=== PATIENT | male | born 1940 | race Caucasian/White ===

== ENCOUNTER → 2020-04-15 | Day surgery (SDC) | payer MEDICARE, BC ==
[~2020-04-15] MED LIST: Ketamine 200 MG/20 ML MDV ONE; Lactated Ringers 1,000 ML IV SCH; Propofol 200 MG/20 ML SDV ONE; fentaNYL 100 MCG/2 ML SDV ONE
--- NOTE | 2020-04-15 11:13 | OR ---
DATE OF OPERATION: 04/15/2020 PREOPERATIVE DIAGNOSIS: HEME-POSITIVE STOOL. POSTOPERATIVE DIAGNOSIS: HEME-POSITIVE STOOL. SURGEON: Rakesh Sarkar MD PROCEDURE: FULL-LENGTH COLONOSCOPY. ANESTHESIA: MAC. COMPLICATIONS: None. SPECIMEN: None. FINDINGS: 1. Normal full-length colonoscopy. 2. Mild sigmoid diverticulosis. RECOMMENDATIONS: Followup colonoscopy on a p.r.n. basis. INDICATIONS: The patient was in for a routine physical and was found to have heme-positive stool, been many years since his last colonoscopy. We proceeded with a diagnostic scope. DESCRIPTION OF PROCEDURE: The patient was prepped and draped and placed in the left lateral decubitus position. A lubricated Olympus colonoscope was inserted and with ease advanced through the cecum. Direct visualization of the ileocecal valve and appendiceal orifice was accomplished. The bowel prep was excellent. Upon withdrawal of the scope throughout the entire length of the colon, I could find no polyps, masses, ulceration, or bleeding sites and no vascular abnormalities or signs of colitis. The rectal vault was unremarkable. Retroflexion showed no perianal lesions. The patient does have scattered diverticula in the sigmoid area, mild in severity. Air was then suctioned and the scope removed without complication. HARRIS/SHAWNEE /[id number]
== END ==
LOC: CC.SDS 07:13
PROVIDERS: ATTEND Family Medicine
DX: K57.30 Diverticulosis of large intestine without perforation or abscess without bleeding (principal); N40.0 Benign prostatic hyperplasia without lower urinary tract symptoms; J44.9 Chronic obstructive pulmonary disease, unspecified; F32.9 Major depressive disorder, single episode, unspecified; E78.00 Pure hypercholesterolemia, unspecified; K21.9 Gastro-esophageal reflux disease without esophagitis; I10 Essential (primary) hypertension; E11.9 Type 2 diabetes mellitus without complications; I77.9 Disorder of arteries and arterioles, unspecified; G47.30 Sleep apnea, unspecified; Z01.812 Encounter for preprocedural laboratory examination; Z20.828 Contact with and (suspected) exposure to other viral communicable diseases; Z88.8 Allergy status to other drugs, medicaments and biological substances; Z79.899 Other long term (current) drug therapy; Z79.82 Long term (current) use of aspirin; Z98.890 Other specified postprocedural states; Z90.49 Acquired absence of other specified parts of digestive tract; Z87.891 Personal history of nicotine dependence
CPT/HCPCS: J2704; J3010; J7120

== ENCOUNTER 2022-11-17 13:57 | Emergency (ER) | payer MEDICARE, OTHER ==
[2022-11-17] MEDS ORDERED: Naloxone 2 MG/2 ML Syringe IVPUSH PRN (14:12)
[2022-11-17] MEDS: Sodium Chloride 0.9% 1,000 ML IV SCH (14:15)
[2022-11-17] MEDS: Ondansetron 4 MG/2 ML SDV IVPUSH PRN (14:18)
[2022-11-17] MEDS: HYDROmorphone 1 MG/ML Syringe IVPUSH ONE (14:20)
[2022-11-17 14:30] LABS: BASOPHILS ABSOLUTE AUTO 0.03 10^3/uL (0.00-0.50); BASOPHILS PERCENT AUTO 0.3 % (0-1); EOSINOPHILS ABSOLUTE AUTO 0.16 10^3/uL (0.00-1.50); EOSINOPHILS PERCENT AUTO 1.5 % (0-6); HEMATOCRIT 38.1 % (42.0-52.0); HEMOGLOBIN 12.8 g/dL (14.0-18.0); IMMATURE GRAN ABSOLUTE AUTO 0.02 10^3/uL (0.00-0.49); IMMATURE GRAN PERCENT AUTO 0.2 % (0.0-4.9); LYMPHOCYTES ABSOLUTE AUTO 1.29 10^3/uL (0.60-5.00); LYMPHOCYTES PERCENT AUTO 11.9 % (24-44); MEAN CORPUSCULAR HGB CONC 33.6 g/dL (32.0-36.0); MEAN CORPUSCULAR VOLUME 83.4 fL (83.0-97.0); MONOCYTES ABSOLUTE AUTO 0.89 10^3/uL (0.00-1.50); MONOCYTES PERCENT AUTO 8.2 % (0-10); NEUTROPHILS ABSOLUTE AUTO 8.42 x10^3/uL (1.80-8.00); NEUTROPHILS PERCENT AUTO 77.9 % (41-71); PLATELET COUNT,PLT 289 10^3/uL (150-400); RED BLOOD CELL COUNT 4.57 x10^6/uL (4.50-6.00); WHITE BLOOD CELL COUNT,WBC 10.8 10^3/uL (4.0-11.0)
[2022-11-17 14:48] LABS: APPEARANCE,URINE CLEAR (CLEAR); BILIRUBIN,URINE NEGATIVE (NEGATIVE); COLOR,URINE YELLOW (YELLOW); GLUCOSE,URINE NEGATIVE (NEGATIVE); KETONES,URINE NEGATIVE (NEGATIVE); LEUKOCYTE ESTERASE,URINE NEGATIVE (NEGATIVE); NITRITE,URINE NEGATIVE (NEGATIVE); OCCULT BLOOD,URINE NEGATIVE (NEGATIVE); PH,URINE 5.5 (4.5-8.0); PROTEIN,URINE NEGATIVE (NEGATIVE); UROBILINOGEN,URINE 0.2 EU/dL (0.2-1.0)
[2022-11-17 14:52] LABS: ALANINE AMINOTRANSFERASE,ALT 31 U/L (12-78); ALBUMIN 3.9 g/dL (3.4-5.0); ALKALINE PHOSPHATASE 105 U/L (46-116); ASPARTATE AMNIOTRANSFERASE,AST 27 U/L (15-37); BILIRUBIN TOTAL 0.3 mg/dL (0.0-1.0); BLOOD UREA NITROGEN,BUN 32 mg/dL (7-18); C-REACTIVE PROTEIN < 0.05 mg/dL (<=0.30); CALCIUM 8.8 mg/dL (8.4-10.1); CARBON DIOXIDE,CO2 26 mmol/L (21-32); CHLORIDE,CL 102 mEq/L (98-106); CREATININE 1.1 mg/dL (0.7-1.3); EST CRCL DRUG DOSING (CG) 57.05 mL/min; ESTIMATED GFR 68 mL/min (>=60); GLUCOSE RANDOM 152 mg/dL (75-99); LIPASE 34 U/L (16-77); MAGNESIUM 1.6 mg/dL (1.8-2.4); POTASSIUM,K 4.3 mEq/L (3.5-5.0); PROTEIN TOTAL,TP 7.6 g/dL (6.4-8.2); SODIUM,NA 139 mEq/L (136-145)
[2022-11-17] MEDS: Iopamidol 755 Mg/ML 100 ML Bottle IVPUSH ONE (15:30)
== END 2022-11-17 16:37 | disposition home or self-care (01) ==
LOC: CC.ED 13:57
DX: R33.9 Retention of urine, unspecified (principal); I10 Essential (primary) hypertension; M19.90 Unspecified osteoarthritis, unspecified site; Z79.82 Long term (current) use of aspirin; Z88.5 Allergy status to narcotic agent; Z79.899 Other long term (current) drug therapy
CPT/HCPCS: 36415; 51702; 74177; 80053; 81003; 83605; 83690; 83735; 85025; 86140; 93010; 96361; 96374; 96375; 99284; 99284-25; J1170; J2405; J7030; Q9967